=== PATIENT | female | born 1990 | race Caucasian/White ===

== ENCOUNTER 2017-11-30 12:04 | Emergency (ER) | payer OTHER, SELFPAY ==
--- NOTE | 2017-11-30 12:09 | ED_ITS ---
HPI - Female Genitourinary General Chief complaint: Urogenital-Female Stated complaint: POSSIBLE INGROWN HAIR OR CYST ON LADY PARTS Time Seen by Provider: 11/30/17 12:08 Source: patient Mode of arrival: ambulatory Limitations: no limitations History of Present Illness HPI Narrative: 27-year-old female here for evaluation of left sided labial swelling and pain. She states that it has been increasing over the past couple days. No history of sexually transmitted diseases. No dysuria. No prior history of these. No vaginal bleeding. Has not tried anything for it at home. Related Data Home Medications Medication Instructions Recorded Confirmed albuterol sulfate [Ventolin HFA] 2 puff INH Q4HP PRN #1 inh 01/06/16 11/19/17 Previous Rx's Medication Instructions Recorded [Paragard] 1 icr VAGINAL #1 03/09/16 clindamycin phosphate 1 % topical 1 applictn TOP BID #60 each 09/11/17 swab fluticasone 50 mcg/actuation nasal 2 spray NASAL DAILY #50 mcg 10/22/17 spray,suspension alprazolam 0.25 mg tablet 0.25 mg PO Q8HP PRN #15 tab 10/31/17 pantoprazole 40 mg tablet,delayed 40 mg PO DAILY #30 tab 11/04/17 release sucralfate 1 gram tablet 1 gram PO Q6H PRN #30 tab 11/04/17 fluoxetine 20 mg capsule 20 mg PO DAILY #30 cap 11/19/17 Allergies Allergy/AdvReac Type Severity Reaction Status Date / Time ceftriaxone [From ROCEPHIN] Allergy Intermediate Verified 11/19/17 11:30 doxycycline [DOXYCYCLINE] Allergy Intermediate Verified 11/19/17 11:30 sulfamethoxazole Allergy Intermediate Verified 11/19/17 11:30 [From SEPTRA] trimethoprim [From SEPTRA] Allergy Intermediate Verified 11/19/17 11:30 Review of Systems Constitutional Denies fever(s) Genitourinary Denies dysuria, Denies urinary urgency and Denies vaginal discharge Comments: Left-sided labial swelling and pain Integumentary/Breasts Reports lesions Hematologic/Lymphatic Denies easy bleeding and Denies easy bruising [facility] Medical History Asthma (Acute 2006) Anxiety (Chronic) Chronic headaches (Chronic) Depression (Chronic) 1 para 1 (Resolved) Normal Papanicolaou smear (Resolved) Surgical History History of third molar tooth extraction (Resolved) Family History Father Age: 53 Colon polyps, Onset Age: 50 Grandfather Age: 72 History of migraine Mother Age: 52 History of migraine Grandmother Age: 74 Colon cancer, Onset Age: 50 Social History Smoking Status: Never smoker Exam Initial Vital Signs Initial Vital Signs: Vital Signs Temperature 98.5 F 11/30/17 12:23 Pulse Rate 75 11/30/17 12:23 Respiratory Rate 18 11/30/17 12:23 Blood Pressure 116/73 11/30/17 12:23 Pulse Oximetry 100 11/30/17 12:23 Other: Normal external female genitalia Patient with a 2 cm area of swelling on the left superior labia majora. No breaks in the skin over the area. No overlying erythema Skin Other: Left-sided labia majora swelling as described above Neuro General: alert, awake and oriented x3 Extrem General: normal to inspection Psych Appearance: grossly normal and well kempt Procedures Abscess I/D Site: other (Left-sided labia majora) Side (if applicable): left Local Anesthetic: lidocaine 1% Amount of anesthesia used (mL): 2 Technique: incised with #11 blade Amount of fluid expressed (mL): 1 Irrigation: No Packing used?: none Complications: other (None) Course Vital Signs - 8 hr 11/30/17 12:23 Temperature 98.5 F Pulse Rate 75 Respiratory Rate 18 Blood Pressure 116/73 Pulse Oximetry 100 MDM - Female Genitourinary MDM Narrative Medical decision making narrative: Patient with a left-sided labia majora swelling consistent with an abscess. Not in the same area as a Bartholin gland abscess. Patient has multiple drug allergies. We did discuss options to include incision and drainage here in the ER versus oral antibiotics at home to see if this does not help. She opted to have the I and D done here. Patient tolerated the procedure well. Were able to express a very small amount of material from the area. Does not have any surrounding erythema so will hold on antibiotics. She was given care instructions. She was given return precautions. She expressed understanding and agreement with plan. Discharge Plan Departure Patient Disposition: Home, Self-Care Clinical Impression: Abscess Instructions: DI for Skin Abscess Activity Restrictions/Additional Instructions: You can shower like normal. Keep the area covered like we discussed. Return to the emergency department for any new or worsening symptoms Prescriptions: No Action sucralfate [Carafate] 1 gram tablet 1 gram PO Q6H PRN (Reason: nausea and vomiting) Qty: 30 RF: 0 pantoprazole [Protonix] 40 mg tablet,delayed release (DR/EC) 40 mg PO DAILY Qty: 30 RF: 0 albuterol sulfate [Ventolin HFA] 90 MCG/PUFF HFA aerosol inhaler 2 puff INH Q4HP PRNQty: 1 RF: 0 [Paragard] 1 icr Vaginal Qty: 1 RF: 0 clindamycin phosphate 1 % swab 1 applictn TOP BID Qty: 60 RF: 5 fluticasone [Flonase Allergy Relief] 50 mcg/actuation spray,suspension 2 spray NASAL DAILY Qty: 50 RF: 6 alprazolam 0.25 mg tablet 0.25 mg PO Q8HP PRN (Reason: anxiety) Qty: 15 RF: 0 fluoxetine 20 mg capsule 20 mg PO DAILY Qty: 30 RF: 3
[2017-11-30 12:23] VITALS: BP 116/73; PULSE 75; RESP 18; TEMP 36.9; O2SAT 100
== END 2017-11-30 12:58 | disposition home or self-care (01) ==
PROVIDERS: Emergency Provider Emergency Medicine; Family Provider Family Medicine; PCP Family Medicine
DX: N76.4 Abscess of vulva (principal)
CPT/HCPCS: 10060; 81025; 99282; 99283

== ENCOUNTER 2017-12-07 11:51 | Emergency (ER) | payer OTHER, SELFPAY ==
[2017-12-07 12:00] VITALS: BP 117/72; PULSE 70; RESP 14; TEMP 36.3; O2SAT 100
--- NOTE | 2017-12-07 12:45 | DI.RAD.S_ITS ---
PROCEDURE: XR CHEST 2V INDICATIONS: ? foreign body. Pt points to chricoid notch. TECHNIQUE: 2 views of the chest were acquired. COMPARISON: [facility], CHEST 1 VIEW, 05/05/2017, 16:58. [facility], CHEST 1 VIEW, 09/02/2017, 17:44. FINDINGS: Surgical changes and devices: None. Lungs and pleura: No pleural effusions or pneumothorax. Lungs are clear. Mediastinum: Mediastinal contours are normal. Heart size is normal. Bones and chest wall: No suspicious bony abnormalities. Soft tissues appear unremarkable. IMPRESSION: No acute cardiopulmonary disease. No opaque foreign bodies. Dictated by: Jose Helms M.D. on 12/07/2017 at 13:15 Approved by: Jose Helms M.D. on 12/07/2017 at 13:16
--- NOTE | 2017-12-07 13:24 | ED.URI ---
HPI - URI/Sore Throat <NAWAF [place] - Last Filed: 12/07/17 23:04> General Chief Complaint: Upper Respiratory Symptoms Stated Complaint: CHEST PAIN Time Seen by Provider: 12/07/17 13:24 Source: patient Mode of arrival: ambulatory Limitations: no limitations History of Present Illness HPI Narrative: 27-year-old female with history of anxiety here for complaint of having some esophageal discomfort after swallowing her vitamins early this morning. She states that she swallowed multiple vitamins and then felt like she had some pain to her upper esophageal area behind the upper sternal area. She states that this caused her to have some anxiety shortly afterwards. She states her symptoms have resolved quite a bit since then. She is able to swallow p.o. intake with no complications. She is handling her own secretions. No shortness of breath. She denies taking any medications at that time frame that are concerning for pill esophagitis. She denies any other concerns or complaints at this time MD Complaint: other Related Data Home Medications Medication Instructions Recorded Confirmed albuterol sulfate [Ventolin HFA] 2 puff INH Q4HP PRN #1 inh 01/06/16 12/05/17 Previous Rx's Medication Instructions Recorded [Paragard] 1 icr VAGINAL #1 03/09/16 clindamycin phosphate 1 % topical 1 applictn TOP BID #60 each 09/11/17 swab fluticasone 50 mcg/actuation nasal 2 spray NASAL DAILY #50 mcg 10/22/17 spray,suspension pantoprazole 40 mg tablet,delayed 40 mg PO DAILY #30 tab 11/04/17 release sucralfate 1 gram tablet 1 gram PO Q6H PRN #30 tab 11/04/17 alprazolam 0.25 mg tablet 0.25 mg PO Q8HP PRN #30 tab 12/05/17 fluoxetine 20 mg capsule 20 mg PO DAILY #90 cap 12/05/17 Allergies Allergy/AdvReac Type Severity Reaction Status Date / Time ceftriaxone [From ROCEPHIN] Allergy Intermediate Verified 12/05/17 14:53 doxycycline [DOXYCYCLINE] Allergy Intermediate Verified 12/05/17 14:53 sulfamethoxazole Allergy Intermediate Verified 12/05/17 14:53 [From SEPTRA] trimethoprim [From SEPTRA] Allergy Intermediate Verified 12/05/17 14:53 Review of Systems <NAWAF [place] - Last Filed: 12/07/17 23:04> Constitutional Denies chills, Denies fever(s), Denies lethargy and Denies weakness Eyes Denies change in vision, Denies eye discharge, Denies irritation and Denies loss of vision ENT Comments: Pain to esophagus when swallowing vitamins earlier today Cardiovascular Denies chest pain, Denies irregular heart rhythm, Denies lightheadedness, Denies palpitations, Denies dyspnea, Denies dyspnea on exertion and Denies orthopnea Respiratory Denies cough, Denies dyspnea, Denies dyspnea on exertion and Denies wheezing Gastrointestinal Gastrointestinal: Denies abdominal pain, Denies change in bowel habits, Denies diarrhea, Denies nausea and Denies vomiting Genitourinary Denies hematuria, Denies flank pain, Denies urinary incontinence and Denies urinary urgency Musculoskeletal Denies back pain, Denies muscle weakness, Denies numbness and Denies tingling Integumentary/Breasts Denies pruritus, Denies erythema, Denies rash and Denies wounds Neurologic Denies confusion, Denies loss of vision, Denies numbness, Denies tingling and Denies weakness Psychiatric Denies anxiety, Denies confusion, Denies depression, Denies homicidal ideation and Denies suicidal ideation Endocrine Denies palpitations Hematologic/Lymphatic Denies easy bruising Allergic/Immunologic Denies wheezing Exam <Michael Marcos [facility] - Last Filed: 12/07/17 23:04> Initial Vital Signs Initial Vital Signs: Vital Signs Temperature 97.4 F L 12/07/17 12:00 Pulse Rate 70 12/07/17 12:00 Respiratory Rate 14 12/07/17 12:00 Blood Pressure 117/72 12/07/17 12:00 Pulse Oximetry 100 12/07/17 12:00 Const General: cooperative and well developed Nutritional Appearance: well nourished Orientation: alert, awake, oriented x3 and not confused HENMI Mouth: oral mucosae normal, oropharynx normal and moist mucous membranes Throat: posterior oropharynx normal Eyes Conjunctivae: conjunctivae normal Sclera: sclerae normal Pupils: PERRL EOM: EOM intact bilaterally Neck Neck: normal visual inspection, trachea midline, No lymphadenopathy, No midline deformity and No JVD Lymphatic: No lymphedema Resp Effort & Inspection: normal respiratory effort, able to speak in complete sentences, no respiratory distress and no use of accessory muscles Auscultation: clear to auscultation bilaterally, no rales, no rhonchi and no wheezes Cardio Rate: regular rate Rhythm: regular rhythm Heart Sounds: no click, no gallops, no murmurs and no rubs Pulses: normal peripheral pulses GI Inspection: non-distended Palpation: soft, no hepatosplenomegaly, No guarding, No pulsatile mass and No tender Auscultation: normal bowel sounds Skin General: no rashes or lesions noted, No jaundice and No petechiae Neuro General: alert, oriented x3, gait normal and no focal motor deficits Speech: speech normal <Can Tran MD - Last Filed: 12/09/17 08:48> Initial Vital Signs Initial Vital Signs: Vital Signs Temperature 97.4 F L 12/07/17 12:00 Pulse Rate 70 12/07/17 12:00 Respiratory Rate 14 12/07/17 12:00 Blood Pressure 117/72 12/07/17 12:00 Pulse Oximetry 100 12/07/17 12:00 Course <NAWAF [place] - Last Filed: 12/07/17 23:04> Orders Ordered: ED Orders 12/07/17 12:45 Chest [XR chest 2V] Stat Vital Signs - 8 hr 12/07/17 12:00 Temperature 97.4 F L Pulse Rate 70 Respiratory Rate 14 Blood Pressure 117/72 Pulse Oximetry 100 <Can Tran MD - Last Filed: 12/09/17 08:48> Orders Ordered: ED Orders 12/07/17 12:45 Chest [XR chest 2V] Stat Vital Signs - 8 hr 12/07/17 12:00 Temperature 97.4 F L Pulse Rate 70 Respiratory Rate 14 Blood Pressure 117/72 Pulse Oximetry 100 MDM - URI/Sore Throat <NAWAF [place] - Last Filed: 12/07/17 23:04> Imaging Data Chest x-ray: Radiologist's impression: Patient: Sherrie Bullock MR#: [id number] : 1990 Acct:[id number] Age/Sex: 27 / F Date of Service: 12/07/17 Loc: ED Accession Number: [id number] Procedure: XR chest 2V Ordering Provider: Michael Marcos PROCEDURE: XR CHEST 2V INDICATIONS: ? foreign body. Pt points to chricoid notch. TECHNIQUE: 2 views of the chest were acquired. COMPARISON: [facility], CHEST 1 VIEW, 05/05/2017, 16:58. [facility], CHEST 1 VIEW, 09/02/2017, 17:44. FINDINGS: Surgical changes and devices: None. Lungs and pleura: No pleural effusions or pneumothorax. Lungs are clear. Mediastinum: Mediastinal contours are normal. Heart size is normal. Bones and chest wall: No suspicious bony abnormalities. Soft tissues appear unremarkable. IMPRESSION: No acute cardiopulmonary disease. No opaque foreign bodies. Dictated by: Jose Helms M.D. on 12/07/2017 at 13:15 Approved by: Jose Helms M.D. on 12/07/2017 at 13:16 MDM Narrative Medical decision making narrative: Patient states feels much better at this timeframe her symptoms have mostly resolved. Chest x-ray was obtained and was negative for any foreign bodies or other acute finding. Signs and symptoms presents as mechanical discomfort due to swallowing vitamins earlier today. Doubtful is pill pharyngitis. [id number] Tylenol as needed for any discomfort. Follow up with primary care provider later this week for re-evaluation. If any worsening symptoms return to the emergency room. Discharge Plan Departure Patient Disposition: Home, Self-Care Clinical Impression: Swallowing pain Discharge Date/Time: 12/07/17 13:53 Interventions: ED Discharge Assessment Last Done: 12/07/17 13:52 Instructions: DI for Esophagitis Activity Restrictions/Additional Instructions: Chest x-ray was obtained was negative for any foreign bodies seen. Signs and symptoms presents as irritation to esophagus due to a mechanical forces by swallowing the pills. Use [id number] Tylenol as needed for any discomfort. Follow up with her primary care provider later this week for re-evaluation. For any worsening symptoms return to the emergency room. Try to space out your pill swallowing with more time to allow for pills to be swallowed easier. Prescriptions: No Action sucralfate [Carafate] 1 gram tablet 1 gram PO Q6H PRN (Reason: nausea and vomiting) Qty: 30 RF: 0 pantoprazole [Protonix] 40 mg tablet,delayed release (DR/EC) 40 mg PO DAILY Qty: 30 RF: 0 albuterol sulfate [Ventolin HFA] 90 MCG/PUFF HFA aerosol inhaler 2 puff INH Q4HP PRNQty: 1 RF: 0 [Paragard] 1 icr Vaginal Qty: 1 RF: 0 clindamycin phosphate 1 % swab 1 applictn TOP BID Qty: 60 RF: 5 fluticasone [Flonase Allergy Relief] 50 mcg/actuation spray,suspension 2 spray NASAL DAILY Qty: 50 RF: 6 fluoxetine 20 mg capsule 20 mg PO DAILY Qty: 90 RF: 0 alprazolam 0.25 mg tablet 0.25 mg PO Q8HP PRN (Reason: anxiety) Qty: 30 RF: 0 Referrals: Dorothy Yanez DO [Primary Care Provider] - <Can Tran MD - Last Filed: 12/09/17 08:48> Sign Out Provider Sign Out Attestation: The PA/PATTERN GRADER SUPERVISOR functioned independently for the care of this pt, I was available, but not asked to participate in care. I am unable to determine appropriateness of management without personally examining the pt.
--- NOTE | 2017-12-07 13:29 | PC.NURSE ---
pt reports she took her vitamins and prozac this morning and she feels like they got stuck in her throat. pt points to cricoid notch. reports she was having pain when swallowing and was starting to panic. the pain has since resolved and pt reports at no point in time was her airway ever compromised. speaking in full sentences and able to swallow water w/o difficulty
--- NOTE | 2017-12-07 13:33 | ED_ITS ---
HPI - URI/Sore Throat <NAWAF [place] - Last Filed: 12/07/17 23:04> General Chief Complaint: Upper Respiratory Symptoms Stated Complaint: CHEST PAIN Time Seen by Provider: 12/07/17 13:24 Source: patient Mode of arrival: ambulatory Limitations: no limitations History of Present Illness HPI Narrative: 27-year-old female with history of anxiety here for complaint of having some esophageal discomfort after swallowing her vitamins early this morning. She states that she swallowed multiple vitamins and then felt like she had some pain to her upper esophageal area behind the upper sternal area. She states that this caused her to have some anxiety shortly afterwards. She states her symptoms have resolved quite a bit since then. She is able to swallow p.o. intake with no complications. She is handling her own secretions. No shortness of breath. She denies taking any medications at that time frame that are concerning for pill esophagitis. She denies any other concerns or complaints at this time MD Complaint: other Related Data Home Medications Medication Instructions Recorded Confirmed albuterol sulfate [Ventolin HFA] 2 puff INH Q4HP PRN #1 inh 01/06/16 12/05/17 Previous Rx's Medication Instructions Recorded [Paragard] 1 icr VAGINAL #1 03/09/16 clindamycin phosphate 1 % topical 1 applictn TOP BID #60 each 09/11/17 swab fluticasone 50 mcg/actuation nasal 2 spray NASAL DAILY #50 mcg 10/22/17 spray,suspension pantoprazole 40 mg tablet,delayed 40 mg PO DAILY #30 tab 11/04/17 release sucralfate 1 gram tablet 1 gram PO Q6H PRN #30 tab 11/04/17 alprazolam 0.25 mg tablet 0.25 mg PO Q8HP PRN #30 tab 12/05/17 fluoxetine 20 mg capsule 20 mg PO DAILY #90 cap 12/05/17 Allergies Allergy/AdvReac Type Severity Reaction Status Date / Time ceftriaxone [From ROCEPHIN] Allergy Intermediate Verified 12/05/17 14:53 doxycycline [DOXYCYCLINE] Allergy Intermediate Verified 12/05/17 14:53 sulfamethoxazole Allergy Intermediate Verified 12/05/17 14:53 [From SEPTRA] trimethoprim [From SEPTRA] Allergy Intermediate Verified 12/05/17 14:53 Review of Systems <NAWAF [place] - Last Filed: 12/07/17 23:04> Constitutional Denies chills, Denies fever(s), Denies lethargy and Denies weakness Eyes Denies change in vision, Denies eye discharge, Denies irritation and Denies loss of vision ENT Comments: Pain to esophagus when swallowing vitamins earlier today Cardiovascular Denies chest pain, Denies irregular heart rhythm, Denies lightheadedness, Denies palpitations, Denies dyspnea, Denies dyspnea on exertion and Denies orthopnea Respiratory Denies cough, Denies dyspnea, Denies dyspnea on exertion and Denies wheezing Gastrointestinal Gastrointestinal: Denies abdominal pain, Denies change in bowel habits, Denies diarrhea, Denies nausea and Denies vomiting Genitourinary Denies hematuria, Denies flank pain, Denies urinary incontinence and Denies urinary urgency Musculoskeletal Denies back pain, Denies muscle weakness, Denies numbness and Denies tingling Integumentary/Breasts Denies pruritus, Denies erythema, Denies rash and Denies wounds Neurologic Denies confusion, Denies loss of vision, Denies numbness, Denies tingling and Denies weakness Psychiatric Denies anxiety, Denies confusion, Denies depression, Denies homicidal ideation and Denies suicidal ideation Endocrine Denies palpitations Hematologic/Lymphatic Denies easy bruising Allergic/Immunologic Denies wheezing Exam <Michael Marcos [facility] - Last Filed: 12/07/17 23:04> Initial Vital Signs Initial Vital Signs: Vital Signs Temperature 97.4 F L 12/07/17 12:00 Pulse Rate 70 12/07/17 12:00 Respiratory Rate 14 12/07/17 12:00 Blood Pressure 117/72 12/07/17 12:00 Pulse Oximetry 100 12/07/17 12:00 Const General: cooperative and well developed Nutritional Appearance: well nourished Orientation: alert, awake, oriented x3 and not confused HENWI Mouth: oral mucosae normal, oropharynx normal and moist mucous membranes Throat: posterior oropharynx normal Eyes Conjunctivae: conjunctivae normal Sclera: sclerae normal Pupils: PERRL EOM: EOM intact bilaterally Neck Neck: normal visual inspection, trachea midline, No lymphadenopathy, No midline deformity and No JVD Lymphatic: No lymphedema Resp Effort & Inspection: normal respiratory effort, able to speak in complete sentences, no respiratory distress and no use of accessory muscles Auscultation: clear to auscultation bilaterally, no rales, no rhonchi and no wheezes Cardio Rate: regular rate Rhythm: regular rhythm Heart Sounds: no click, no gallops, no murmurs and no rubs Pulses: normal peripheral pulses GI Inspection: non-distended Palpation: soft, no hepatosplenomegaly, No guarding, No pulsatile mass and No tender Auscultation: normal bowel sounds Skin General: no rashes or lesions noted, No jaundice and No petechiae Neuro General: alert, oriented x3, gait normal and no focal motor deficits Speech: speech normal <Can Tran MD - Last Filed: 12/09/17 08:48> Initial Vital Signs Initial Vital Signs: Vital Signs Temperature 97.4 F L 12/07/17 12:00 Pulse Rate 70 12/07/17 12:00 Respiratory Rate 14 12/07/17 12:00 Blood Pressure 117/72 12/07/17 12:00 Pulse Oximetry 100 12/07/17 12:00 Course <NAWAF [place] - Last Filed: 12/07/17 23:04> Orders Ordered: ED Orders 12/07/17 12:45 Chest [XR chest 2V] Stat Vital Signs - 8 hr 12/07/17 12:00 Temperature 97.4 F L Pulse Rate 70 Respiratory Rate 14 Blood Pressure 117/72 Pulse Oximetry 100 <Can Tran MD - Last Filed: 12/09/17 08:48> Orders Ordered: ED Orders 12/07/17 12:45 Chest [XR chest 2V] Stat Vital Signs - 8 hr 12/07/17 12:00 Temperature 97.4 F L Pulse Rate 70 Respiratory Rate 14 Blood Pressure 117/72 Pulse Oximetry 100 MDM - URI/Sore Throat <NAWAF [place] - Last Filed: 12/07/17 23:04> Imaging Data Chest x-ray: Radiologist's impression: Patient: Sherrie Bullock MR#: [id number] : 1990 Acct:[id number] Age/Sex: 27 / F Date of Service: 12/07/17 Loc: ED Accession Number: [id number] Procedure: XR chest 2V Ordering Provider: Michael Marcos PROCEDURE: XR CHEST 2V INDICATIONS: ? foreign body. Pt points to chricoid notch. TECHNIQUE: 2 views of the chest were acquired. COMPARISON: [facility], CHEST 1 VIEW, 05/05/2017, 16:58. [facility], CHEST 1 VIEW, 09/02/2017, 17:44. FINDINGS: Surgical changes and devices: None. Lungs and pleura: No pleural effusions or pneumothorax. Lungs are clear. Mediastinum: Mediastinal contours are normal. Heart size is normal. Bones and chest wall: No suspicious bony abnormalities. Soft tissues appear unremarkable. IMPRESSION: No acute cardiopulmonary disease. No opaque foreign bodies. Dictated by: Jose Helms M.D. on 12/07/2017 at 13:15 Approved by: Jose Helms M.D. on 12/07/2017 at 13:16 MDM Narrative Medical decision making narrative: Patient states feels much better at this timeframe her symptoms have mostly resolved. Chest x-ray was obtained and was negative for any foreign bodies or other acute finding. Signs and symptoms presents as mechanical discomfort due to swallowing vitamins earlier today. Doubtful is pill pharyngitis. [id number] Tylenol as needed for any discomfort. Follow up with primary care provider later this week for re- evaluation. If any worsening symptoms return to the emergency room. Discharge Plan Departure Patient Disposition: Home, Self-Care Clinical Impression: Swallowing pain Discharge Date/Time: 12/07/17 13:53 Interventions: ED Discharge Assessment Last Done: 12/07/17 13:52 Instructions: DI for Esophagitis Activity Restrictions/Additional Instructions: Chest x-ray was obtained was negative for any foreign bodies seen. Signs and symptoms presents as irritation to esophagus due to a mechanical forces by swallowing the pills. Use [id number] Tylenol as needed for any discomfort. Follow up with her primary care provider later this week for re- evaluation. For any worsening symptoms return to the emergency room. Try to space out your pill swallowing with more time to allow for pills to be swallowed easier. Prescriptions: No Action sucralfate [Carafate] 1 gram tablet 1 gram PO Q6H PRN (Reason: nausea and vomiting) Qty: 30 RF: 0 pantoprazole [Protonix] 40 mg tablet,delayed release (DR/EC) 40 mg PO DAILY Qty: 30 RF: 0 albuterol sulfate [Ventolin HFA] 90 MCG/PUFF HFA aerosol inhaler 2 puff INH Q4HP PRNQty: 1 RF: 0 [Paragard] 1 icr Vaginal Qty: 1 RF: 0 clindamycin phosphate 1 % swab 1 applictn TOP BID Qty: 60 RF: 5 fluticasone [Flonase Allergy Relief] 50 mcg/actuation spray,suspension 2 spray NASAL DAILY Qty: 50 RF: 6 fluoxetine 20 mg capsule 20 mg PO DAILY Qty: 90 RF: 0 alprazolam 0.25 mg tablet 0.25 mg PO Q8HP PRN (Reason: anxiety) Qty: 30 RF: 0 Referrals: Dorothy Yanez DO [Primary Care Provider] - <Can Tran MD - Last Filed: 12/09/17 08:48> Sign Out Provider Sign Out Attestation: The [employer] functioned independently for the care of this pt, I was available, but not asked to participate in care. I am unable to determine appropriateness of management without personally examining the pt.
== END 2017-12-07 13:53 | disposition home or self-care (01) ==
PROVIDERS: Emergency Provider Nurse Practitioner Family; Family Provider Family Medicine; PCP Family Medicine
DX: R13.10 Dysphagia, unspecified (principal)
CPT/HCPCS: 71046; 99282; 99283